=== PATIENT | male | born 1975 | race Caucasian/White ===

== ENCOUNTER 2017-12-30 17:37 | Emergency (ER) | payer OTHER ==
[~2017-12-30] VITALS: Ht 167.6 cm; Wt 111.6 kg
[~2017-12-30 17:37] MED LIST: ASPIR LOW81 MG PO; CIPROFLOXACIN500 MG PO; DIFLUCAN100 MG PO; GLUCOPHAGE1000 MG PO; LIPITOR40 MG PO; LISINOPRIL2.5 MG PO; MYCOLOG CREAM 115 GM T; PEPTO BISM262 MG/15 PO; TOUJEO SOL300 UNIT/1 SQ; ZOFRAN ODT4 MG SL; ZOFRAN4 MG PO
[2017-12-30] MEDS ORDERED: KENALOG 0.1%80 GM T (17:57)
[2017-12-30 17:58] VITALS: BP 142/78
== END 2017-12-30 18:11 | disposition home or self-care (01) ==
LOC: ED 17:37
DX: L21.0 Seborrhea capitis (principal); R51 Headache; E66.01 Morbid (severe) obesity due to excess calories; E11.9 Type 2 diabetes mellitus without complications; I10 Essential (primary) hypertension; Z88.0 Allergy status to penicillin; Z79.82 Long term (current) use of aspirin; Z79.899 Other long term (current) drug therapy; Z79.84 Long term (current) use of oral hypoglycemic drugs; Z79.4 Long term (current) use of insulin; Z98.890 Other specified postprocedural states